=== PATIENT | female | born 1950 | race Two or more races ===

== ENCOUNTER → 2017-09-16 | Emergency (ER) | payer OTHER ==
[~2017-09-16] VITALS: Ht 152.4 cm; Wt 67.1 kg
[~2017-09-16] MED LIST: BENZONATATE200 M1; CLEOCIN HCL300 MG; METHYLPREDNISOL16 MG; NABUMETONE500 MG PO; PERCOCET 5/3251 TAB PO; SYNTHROID75 MCG PO
== END | disposition home or self-care (01) ==
LOC: ER 09:52
DX: J40 Bronchitis, not specified as acute or chronic (principal)

== ENCOUNTER 2018-07-08 11:16 | Emergency (ER) | payer OTHER ==
[~2018-07-08] VITALS: Ht 152.4 cm; Wt 65.8 kg
[2018-07-08] MEDS ORDERED: SYNTHROID88 MCG (11:49)
[2018-07-08] MEDS ORDERED: TAMS0.4C PO (16:02)
[2018-07-08] MEDS ORDERED: NAPR500T14 PO (16:03)
== END 2018-07-08 16:21 | disposition home or self-care (01) ==
LOC: ER 11:16
DX: N20.0 Calculus of kidney (principal); N13.30 Unspecified hydronephrosis; R10.31 Right lower quadrant pain

== ENCOUNTER 2020-11-27 05:53 | Day surgery (SDC) | payer OTHER ==
[~2020-11-27 05:53] MED LIST changes: +ALTACE5 MG PO; +NAPR500T14 PO; +SYNTHROID50 MCG PO; +SYNTHROID75 MCG; +SYNTHROID88 MCG; +TAMS0.4C PO
== END 2020-11-27 12:45 | disposition home or self-care (01) ==
LOC: CIR.AMB 05:53
PROVIDERS: ATTEND Surgery Surgery of the Hand
DX: D21.21 Benign neoplasm of connective and other soft tissue of right lower limb, including hip (principal); Z20.822 Contact with and (suspected) exposure to COVID-19

== ENCOUNTER 2020-11-27 17:39 | Emergency (ER) | payer OTHER ==
[~2020-11-27] VITALS: Ht 152.4 cm; Wt 63.5 kg
== END 2020-11-27 20:21 | disposition home or self-care (01) ==
LOC: ER 17:39
DX: L76.32 Postprocedural hematoma of skin and subcutaneous tissue following other procedure (principal)

== ENCOUNTER 2021-01-31 07:34 | Outpatient (CLI) | payer OTHER | END 2021-01-31 07:44 | disposition home or self-care (01) | LOC: TOM 07:34 | PROVIDERS: ATTEND Internal Medicine | DX: Q33.0 Congenital cystic lung (principal); I10 Essential (primary) hypertension; E78.2 Mixed hyperlipidemia; E03.8 Other specified hypothyroidism; R31.1 Benign essential microscopic hematuria; S83.242S Other tear of medial meniscus, current injury, left knee, sequela; M25.552 Pain in left hip; M85.89 Other specified disorders of bone density and structure, multiple sites; M79.643 Pain in unspecified hand; D49.3 Neoplasm of unspecified behavior of breast; L30.8 Other specified dermatitis; N60.21 Fibroadenosis of right breast; N60.22 Fibroadenosis of left breast; E55.9 Vitamin D deficiency, unspecified; Z68.28 Body mass index [BMI] 28.0-28.9, adult; Z01.818 Encounter for other preprocedural examination; Z86.010 Personal history of colon polyps ==

== ENCOUNTER → 2024-04-10 | Emergency (ER) | payer OTHER ==
[~2024-04-10] VITALS: Ht 152.4 cm; Wt 51.3 kg
== END | disposition left against medical advice (07) ==
LOC: ER 09:39
DX: Z53.21 Procedure and treatment not carried out due to patient leaving prior to being seen by health care provider (principal)

== ENCOUNTER 2025-04-30 16:22 | Emergency (ER) | payer OTHER ==
[~2025-04-30] VITALS: Ht 152.4 cm; Wt 46.7 kg
[2025-04-30] MEDS ORDERED: IPRATROPIUM BROMIDE 0.5 MG/2.5 ML AMPUL.NEB IH ONE (17:30)
[2025-04-30 19:58] LABS: BASO % 0.3 % (0.1-1.2); EOS # 0.01 (0.04-0.54); EOS % 0.1 % (0.7-7.0); LYMPH # 1.18 (1.18-3.74); LYMPH % 17.1 % (19.3-53.1); MEAN PLATELET VOLUME 11.00 fl (9.4-12.4); MONO # 0.51 (0.24-0.82); MONO % 7.4 % (4.7-12.5); NEUT # 5.16 (1.56-6.13); NEUT % 74.8 % (34.0-71.1); RED CELL DISTRIBUTION WIDTH 13.2 % (11.6-14.4)
[2025-04-30 20:06] LABS: COVID-19 AG NEGATIVE (NEGATIVE)
[2025-04-30 20:30] LABS: ALT/SGPT 28.0 U/L (12-78); AST/SGOT 22.0 U/L (15-37); BILIRUBIN TOTAL 1.21 mg/dL (0.3-1.2); BUN CREA RATIO 22.0 (7.0-25.0); CKMB 2.6 NG/ML (0.5-3.6); CREATININE SERUM 0.59 mg/dL (0.55-1.02); GFR 99.1; GLOBULINA 2.1 G/DL (2.4-3.5); GLUCOSE FASTING 93.0 mg/dL (65-100); OSMOLALITY SERUM 289.0 MOSM/KG (275-295)
[2025-04-30] MEDS ORDERED: VISTARIL50 MG/ML PO (21:58)
== END 2025-04-30 22:19 | disposition home or self-care (01) ==
LOC: ER 16:23
PROVIDERS: Student in an Organized Health Care Education/Training Program
DX: F41.9 Anxiety disorder, unspecified (principal); R06.02 Shortness of breath; Z20.822 Contact with and (suspected) exposure to COVID-19; I10 Essential (primary) hypertension; E03.8 Other specified hypothyroidism; Z88.8 Allergy status to other drugs, medicaments and biological substances